=== PATIENT | female | born 1990 | race Caucasian/White ===

== ENCOUNTER 2018-03-25 15:57 | Inpatient (IN) | payer OTHER ==
[~2018-03-25] VITALS: Ht 160 cm; Wt 94.0 kg
[~2018-03-25 15:57] MED LIST: MIREIUD IU; NOVOLOGP2 IMPLANPUMP; PRED20 PO; [UNRECOGNIZED DRUG - CODE] SQ
[2018-03-25] MEDS ORDERED: NURSING INFORMATION OTHER SCH (16:30)
[2018-03-25] MEDS ORDERED: SODIUM CHLORIDE 0.9% FLUSH 10 ML FLUSH IV FLUSH PRN (16:45)
[2018-03-25] MEDS ORDERED: ONDANSETRON ODT 4 MG TAB PO PRN (16:45)
[2018-03-25] MEDS ORDERED: ZOLPIDEM TARTRATE 5 MG TAB PO PRN (16:45)
--- NOTE | 2018-03-25 16:53 | HHI.HP ---
HPI Date Seen: Mar 25, 2018 Time Seen: 16:30 Travel History International Travel<30 Days: No Contact w/Intl Traveler<30Days: No Known Affected Area: No History of Present Illness HPI 27 yo 30 5/7 weeks who had some abdominal pain and had CMP yesterday. she has no symptoms of preeclampsia, no MEJIA no visual disturbance and no hyperreflexia. She had AST/ALT of 400/600. She will be admitted for steroids, 24 hr urine, and repeat labs. She has type 1 DM and hypertension on aldomet Weeks Gestation: 30 Para: 0 : 1 History Past Medical History Narrative Medical Type 1 IDDM, HTN since 13 weeks Obstetric History Obstetric History primiparous Past Surgical History Narrative Surgical none Social History Alcohol Use: No Tobacco Use: No Substance Abuse: No Allergies-Medications (Allergen,Severity, Reaction): Coded Allergies: No Known Allergies (Verified , 09/09/14) Home Meds Active Scripts Prednisone (Deltasone) 20 Mg Tab, 20 MG PO DAILY, #3 TAB Prov:Ximena Gaines MD 09/09/14 Reported Medications Pramlintide Acetate (Symlinpen 60) 1,000 Mcg Inj, 30 UNIT SQ TIDAC 08/09/14 Insulin Aspart (Novolog) 100 Units/Ml Inj, 1 UNIT IMPLANPUMP CONTINUOUS, INJ 08/09/14 Levonorgestrel (Iud) (Mirena) Iud, 1 IU, IUD 08/09/14 Review of Systems Except as stated in HPI: all other systems reviewed are Neg Physical Exam Narrative GENERAL: Well-nourished, well-developed patient. SKIN: Warm and dry. HEAD: Normocephalic and atraumatic. . NECK: Supple, trachea midline. No JVD. CARDIOVASCULAR: Regular rate and rhythm without murmurs, gallops, or rubs. RESPIRATORY: Breath sounds equal bilaterally. No accessory muscle use. BREASTS: Bilateral exam showed no masses , no retractions, no nipple discharge. ABDOMEN/GI: Abdomen soft, non-tender, bowel sounds present, no rebound, no guarding Gravid to 30 weeks size Fundal Height: [-] GENITOURINARY: External Genitalia: intact and normal in appearance BUS glands: [-] Cervix: [-] Dilatation: deferred Effacement: [-] Station: [-] Presentation: [-] Membranes: [intact or ruptured] Uterine Contractions: [-] FHT's: Category: reassuring Baseline: [-] Reactive: [-] Variability: [-] Decels: [-] EXTREMITIES: No cyanosis or edema. BACK: Nontender without obvious deformity. No CVA tenderness. NEUROLOGICAL: Awake and alert. Motor and sensory grossly within normal limits. Five out of 5 muscle strength in all muscle groups. Normal speech. normal reflexes Caprini VTE Risk Assessment Caprini VTE Risk Assessment: No/Low Risk (score <= 1) Caprini Risk Assessment Model Point Value = 1 Point Value = 2 Point Value = 3 Point Value = 5 Age 41-60 Minor surgery BMI > 25 kg/m2 Swollen legs Varicose veins or History of unexplained or recurrent spontaneous Oral contraceptives or hormone replacement Sepsis (< 1 month) Serious lung disease, including pneumonia (< 1 month) Abnormal pulmonary function Acute myocardial infarction Congestive heart failure (< 1 month) History of inflammatory bowel disease Medical patient at bed rest Age 61-74 Arthroscopic surgery Major open surgery (> 45 min) Laparoscopic surgery (> 45 min) Malignancy Confined to bed (> 72 hours) Immobilizing plaster cast Central venous access Age >= 75 History of VTE Family history of VTE Factor V Leiden Prothrombin [id number] Lupus anticoagulant Anticardiolipin antibodies Elevated serum homocysteine Heparin-induced thrombocytopenia Other congenital or acquired thrombophilia Stroke (< 1 month) Elective arthroplasty Hip, pelvis, or leg fracture Acute spinal cord injury (< 1 month) Prophylaxis Regimen Total Risk Factor Score Risk Level Prophylaxis Regimen 0-1 Low Early ambulation 2 Moderate Order ONE of the following: *Sequential Compression Device (SCD) *Heparin 5000 units SQ BID 3-4 Higher Order ONE of the following medications: *Heparin 5000 units SQ TID *Enoxaparin/Lovenox 40 mg SQ daily (WT < 150 kg, CrCl > 30 mL/min) *Enoxaparin/Lovenox 30 mg SQ daily (WT < 150 kg, CrCl > 10-29 mL/min) *Enoxaparin/Lovenox 30 mg SQ BID (WT < 150 kg, CrCl > 30 mL/min) AND/OR *Sequential Compression Device (SCD) 5 or more Highest Order ONE of the following medications: *Heparin 5000 units SQ TID (Preferred with Epidurals) *Enoxaparin/Lovenox 40 mg SQ daily (WT < 150 kg, CrCl > 30 mL/min) *Enoxaparin/Lovenox 30 mg SQ daily (WT < 150 kg, CrCl > 10-29 mL/min) *Enoxaparin/Lovenox 30 mg SQ BID (WT < 150 kg, CrCl > 30 mL/min) AND *Sequential Compression Device (SCD) Data Data Vital Signs Reviewed: Yes Orders Orders Place In Observation (03/25/18 ) Diet Regular Basic (03/25/18 Dinner) Vital Signs (Adult) [id number] AWAKE (03/25/18 16:31) Heart RIGOBERTO.QSHIFT (03/25/18 16:31) Activity Bed Rest With Brp (03/25/18 16:31) Complete Blood Count With Diff (03/25/18 16:31) Total Protein 24hr Urine (03/25/18 16:31) Uric Acid (03/25/18 16:31) Urinalysis - C+S If Indicated (03/25/18 16:31) Acetaminophen (Tylenol) (03/25/18 16:45) Sodium Chloride 0.9% Flush (Ns Flush) (03/25/18 21:00) Sodium Chloride 0.9% Flush (Ns Flush) (03/25/18 16:45) Zolpidem (Ambien) (03/25/18 16:45) Ondansetron Odt (Zofran Odt) (03/25/18 16:45) Consult Perinatology (03/25/18 23:55) Betamethasone Inj (Celestone Soluspan In (03/25/18 16:45) Comprehensive Metabolic Panel (03/25/18 16:31) Hepatitis Profile (03/25/18 16:31) Specimen To Be Collected PRN (03/25/18 16:31) Assessment/Plan Problem List: (1) 30 weeks gestation of ICD Codes: Z3A.30 - 30 weeks gestation of (2) Elevated transaminase level ICD Codes: R74.0 - Nonspecific elevation of levels of transaminase and lactic acid dehydrogenase [LDH] Assessment and Plan betamethasone, 24 hour urine Willie Nicole MD Mar 25, 2018 16:53
[2018-03-25] MEDS ORDERED: METH500T PO (16:56)
[2018-03-25] MEDS: ACETAMINOPHEN 325 MG TAB PO PRN (17:21)
[2018-03-25] MEDS: BETAMETHASONE SOD PHOS/ACETATE SUSP 30 MG/5 ML VIAL IM SCH (17:22)
[2018-03-25 18:29] LABS: AUTOMATED NEUTROPHIL # 7.8 TH/MM3 (1.8-7.7); BASOPHIL % 0.2 % (0.0-2.0); EOSINOPHIL # 0.1 TH/MM3 (0-0.4); EOSINOPHIL % 0.4 % (0.0-4.0); HEMATOCRIT 36.1 % (35.0-46.0); HEMOGLOBIN 12.3 GM/DL (11.6-15.3); LYMPHOCYTE # 2.9 TH/MM3 (1.0-4.8); MEAN CELL VOLUME 91.3 FL (80.0-100.0); MEAN CORPUSCULAR HEMOGLOBIN 31.2 PG (27.0-34.0); MEAN CORPUSCULAR HGB CONC 34.1 % (32.0-36.0); MEAN PLATELET VOLUME 9.9 FL (7.0-11.0); MONO % 6.1 % (0.0-8.0); MONOCYTE # 0.7 TH/MM3 (0-0.9); NEUT % 68.3 % (16.0-70.0); PLATELET COUNT 88 TH/MM3 (150-450); RED BLOOD COUNT 3.95 MIL/MM3 (4.00-5.30); RED CELL DISTRIBUTION WIDTH 13.5 % (11.6-17.2); WHITE BLOOD COUNT 11.4 TH/MM3 (4.0-11.0)
[2018-03-25 18:41] LABS: ALBUMIN 2.7 GM/DL (3.4-5.0); AST (GOT) 150 U/L (15-37); BICARBONATE 22.1 MEQ/L (21.0-32.0); BLOOD UREA NITROGEN 12 MG/DL (7-18); CALCIUM 8.7 MG/DL (8.5-10.1); CHLORIDE 102 MEQ/L (98-107); CREATININE 0.65 MG/DL (0.50-1.00); GLOMERULAR FILTRATION RATE 111 ML/MIN (>89); GLUCOSE,RANDOM 166 MG/DL (74-106); SODIUM (NA) 136 MEQ/L (136-145)
[2018-03-25 18:42] LABS: ALT (GPT) 274 U/L (10-53)
[2018-03-25 18:44] LABS: ALKALINE PHOSPHATASE 200 U/L (45-117); TOTAL BILIRUBIN ADULT 0.3 MG/DL (0.2-1.0); TOTAL PROTEIN 6.8 GM/DL (6.4-8.2)
[2018-03-25 18:47] LABS: BACTERIA, URINE RARE /hpf; BILIRUBIN, URINE NEG (NEG); BLOOD, URINE NEG (NEG); GLUCOSE,URINE NEG (NEG); KETONE, URINE NEG (NEG); NITRITE,URINE NEG (NEG); SQUAMOUS EPITHELIAL CELL URINE 17 /hpf (0-5); URINE COLOR LIGHT-YELLOW (YELLW/STRAW); URINE LEUKOCYTE ESTERASE NEG (NEG)
[2018-03-25 19:31] LABS: BANDS 2 % (0-6); LYMPHOCYTES 12 % (9-44); MONOCYTES 4 % (0-8); MYELOCYTES 1 % (0-0); NEUTROPHIL # MANUAL DIFF 9.6 TH/MM3 (1.8-7.7); POLYS (SEG NEUTROPHILS) 81 % (16-70); TOXIC GRANULATION 2+ (NORMAL)
[2018-03-25 19:59] LABS: HEMOGLOBIN A1C 6.6 % (4.3-6.0)
[2018-03-25] MEDS ORDERED: MORPHINE SULFATE 4 MG/ML INJ IV ONE (20:30)
[2018-03-25] MEDS: SODIUM CHLORIDE 0.9% FLUSH 10 ML FLUSH IV FLUSH SCH (21:41)
[2018-03-25] MEDS: METHYLDOPA 500 MG TAB PO SCH (21:41)
[2018-03-26 06:01] LABS: AUTOMATED NEUTROPHIL # 12.1 TH/MM3 (1.8-7.7); BASOPHIL % 0.1 % (0.0-2.0); HEMATOCRIT 37.7 % (35.0-46.0); HEMOGLOBIN 12.8 GM/DL (11.6-15.3); LYMPH % 11.5 % (9.0-44.0); LYMPHOCYTE # 1.6 TH/MM3 (1.0-4.8); MEAN CELL VOLUME 91.1 FL (80.0-100.0); MEAN PLATELET VOLUME 9.7 FL (7.0-11.0); MONO % 2.6 % (0.0-8.0); MONOCYTE # 0.4 TH/MM3 (0-0.9); NEUT % 85.8 % (16.0-70.0); PLATELET COUNT 116 TH/MM3 (150-450); RED BLOOD COUNT 4.14 MIL/MM3 (4.00-5.30); RED CELL DISTRIBUTION WIDTH 13.4 % (11.6-17.2)
[2018-03-26 06:14] LABS: ALBUMIN 2.4 GM/DL (3.4-5.0); AST (GOT) 85 U/L (15-37); BICARBONATE 20.7 MEQ/L (21.0-32.0); BLOOD UREA NITROGEN 9 MG/DL (7-18); CALCIUM 8.4 MG/DL (8.5-10.1); CHLORIDE 104 MEQ/L (98-107); CREATININE 0.64 MG/DL (0.50-1.00); GLOMERULAR FILTRATION RATE 113 ML/MIN (>89); GLUCOSE,RANDOM 227 MG/DL (74-106); SODIUM (NA) 137 MEQ/L (136-145)
[2018-03-26 06:15] LABS: ALT (GPT) 219 U/L (10-53)
[2018-03-26 06:17] LABS: ALKALINE PHOSPHATASE 207 U/L (45-117); TOTAL BILIRUBIN ADULT 0.3 MG/DL (0.2-1.0); TOTAL PROTEIN 6.6 GM/DL (6.4-8.2)
[2018-03-26] MEDS: SODIUM CHLORIDE 0.9% FLUSH 10 ML FLUSH IV FLUSH SCH ×2 (09:30→20:49)
[2018-03-26] MEDS: METHYLDOPA 500 MG TAB PO SCH ×2 (09:30→20:49)
--- NOTE | 2018-03-26 10:56 | PD.CONS ---
History & Physical H&P The patient is a 27yo at 30 6/7 weeks with an EDC of 05/29/18 as determine by a 7 week ultrasound. She presented from the OB office yesterday due to abdominal pain and elevated LFT's. The patient reports episode of RUQ/ epigastric pain approximately 1 week ago that improved with emesis. The pain recurred 2 days ago; Emesis occurred again, but the pain didn't resolve. She was seen in the office; blood work drawn and LFT's returned as significantly elevated (AST 390, ALT 646). In addition, the initial blood work revealed thrombocytopenia of 88K. Both the LFT's and the platelet count improved upon repeat yesterday and again today. The patient reports that the has been uncomplicated. She does have a 7 year history of Type 1 DM (managed by endocrinology, on insulin pump x 6 years ) and a recent diagnosis this of HTN (diagnosed at 10 weeks, started on Aldomet 500mg BID). No baseline preeclampsia labs were completed. She has a history of headaches. She had a headache last night, and it resolved with rest. It felt to be her usual headache. Lower extremity edema has been 1-2+; the family says her face is swollen. There is good movement; She denies rupture of membranes and vaginal bleeding. PMHx: Type 1 DM: diagnosed 7 years ago. Managed by endocrinology; has been on insulin pump x 6 years. Reports pre- HbA1c of ~ 8.5%; Repeat HbA1c yesterday 6.6%. HTN: diagnosed this at 10 weeks, with BP of 148/98; BP stable on Aldomet 500mg BID; BP range: 120-147/70-91. No baseline HTN labs completed. PSHx: none POBHx: G1 Meds: Humalog, Aldomet, Vitamins NKDA Social Hx: denies tobacco/EtoH/drug use; she works as a critical care nurse. MFM Ultrasound: EFW: 1289g, < 3% cephalic BPP 05/28 DANIELA 12.3 Umbilical doppler mildly elevated: 4.2 MCA: 1.26 NOTE: left forearm not visualized; no left hand seen; left humerus only seen. EFM: 10x10 beat accelerations, appropriate for gestational age, Category 1 Test 03/25/18 17:10 03/26/18 05:14 Blood Urea Nitrogen 12 MG/DL 9 MG/DL Creatinine 0.65 MG/DL 0.64 MG/DL Random Glucose 166 MG/DL 227 MG/DL Total Protein 6.8 GM/DL 6.6 GM/DL Albumin 2.7 GM/DL 2.4 GM/DL Calcium Level 8.7 MG/DL 8.4 MG/DL Uric Acid 4.9 MG/DL Alkaline Phosphatase 200 U/L 207 U/L Aspartate Amino Transf (AST/SGOT) 150 U/L 85 U/L Alanine Aminotransferase (ALT/SGPT) 274 U/L 219 U/L Total Bilirubin 0.3 MG/DL 0.3 MG/DL Sodium Level 136 MEQ/L 137 MEQ/L Potassium Level 3.7 MEQ/L 4.2 MEQ/L Chloride Level 102 MEQ/L 104 MEQ/L Carbon Dioxide Level 22.1 MEQ/L 20.7 MEQ/L Red Blood Count 3.95 MIL/MM3 4.14 MIL/MM3 White Blood Count 11.4 TH/MM3 14.0 TH/MM3 Active Scripts Active Reported 03/25/18 17:10 03/26/18 05:14 IMPRESSION: 1. IUP at 30 6/7 weeks 2. Type 1 DM x 7 years 3. Hypertension, new diagnosis this - No baseline labs or 24hr urine - BP has remained stable on Aldomet 500mg BID; - BP not elevated this admission - 24hr urine in progress 4. Abdominal pain with elevated LFT's, decreased platelets; suspected superimposed preeclampsia, possible HELLP syndrome - Pain has improved since admission; LFT"s have also improved, yet remain elevated. - Thrombocytopenia has also improved, but remain decreased , 150,000. 5. growth restriction - Reassuring testing BPP 07/30 - Appropriate dopplers, umbilical and MCA Differential diagnosis includes superimposed preeclampsia, viral gastroenteritis /infection, gestational thrombocytopenia. We discussed the diagnosis of preeclampsia, criteria for severe disease and management plan at this gestational age. Complications of preeclampsia include development of severe HTN, stroke, blindness, renal insufficiency, convulsions, liver dysfunction, coagulaopathy, growth restriction, placental abruption , demise and complications of prematurity. The family understands that she will be monitored closely with serial lab evaluations since the diagnosis at this time is not clearly established. Should the LFT and/or platelets remain uncorrected or worsen, delivery is indicated for a diagnosis of HELLP. Delivery is indicated for elevated BP. AntiHTN medication should not be increased. There should be a low threshold for delivery, particularly if there is > 300mg proteinuria. In summary, the criteria of severe preeclampsia include: 1. HTN with SBP > 160 or DBP > 105-110 mmHG 2. Pulmonary edema 3. Neurologic signs and symptoms including persistent headache, blurred vision or scotomata 4. Hyperreflexia 5. Convulsions 6. Renal insufficiency 7. Oliguria 8. Hemolysis (LDH>600) 9. Thrombocytopenia < 100,000 10. Elevated LFT 11. Epigastric or RUQ pain. RECOMMENDATIONS: 1. Monitor BP closely 2. Complete 24hr urine to total protein and creatinine clearance 3. Repeat preeclampsia labs today when the 24hr urine is completed. 4. Follow strict input and output 5. Twice daily NST and continuous monitoring if severe range BP 6. Twice weekly testing with BPP and dopplers 7. Twice weekly preeclampsia labs 8. Once weekly 24hr urine collection 9. BMZ series - as you are doing 10. Delivery is indicated in the presence of compromise, development of severe preeclampsia or at 34 weeks due to IUGR in the setting of IDDM and CHTN. Thank you for involving us in the care of your obstetrical patient. Please let us know if you have additional questions. Total Time: 60 min with > 50% time spent in consultation and coordination of care. Eugenia Mercado MD Mar 26, 2018 10:56
--- NOTE | 2018-03-26 13:45 | PD.OB.ANTE ---
Subjective Diagnosis: (1) 30 weeks gestation of Diagnosis: Principal (2) Elevated transaminase level Diagnosis: Principal Objective Lab & Micro Results Test 03/25/18 17:10 03/25/18 18:05 03/26/18 05:14 White Blood Count 11.4 TH/MM3 14.0 TH/MM3 Red Blood Count 3.95 MIL/MM3 4.14 MIL/MM3 Hemoglobin 12.3 GM/DL 12.8 GM/DL Hematocrit 36.1 % 37.7 % Mean Corpuscular Volume 91.3 FL 91.1 FL Mean Corpuscular Hemoglobin 31.2 PG 31.0 PG Mean Corpuscular Hemoglobin Concent 34.1 % 34.0 % Red Cell Distribution Width 13.5 % 13.4 % Platelet Count 88 TH/MM3 116 TH/MM3 Mean Platelet Volume 9.9 FL 9.7 FL Neutrophils (%) (Auto) 68.3 % 85.8 % Lymphocytes (%) (Auto) 25.0 % 11.5 % Monocytes (%) (Auto) 6.1 % 2.6 % Eosinophils (%) (Auto) 0.4 % 0.0 % Basophils (%) (Auto) 0.2 % 0.1 % Neutrophils # (Auto) 7.8 TH/MM3 12.1 TH/MM3 Lymphocytes # (Auto) 2.9 TH/MM3 1.6 TH/MM3 Monocytes # (Auto) 0.7 TH/MM3 0.4 TH/MM3 Eosinophils # (Auto) 0.1 TH/MM3 0.0 TH/MM3 Basophils # (Auto) 0.0 TH/MM3 0.0 TH/MM3 CBC Comment AUTO DIFF DIFF FINAL Differential Total Cells Counted 100 Neutrophils % (Manual) 81 % Band Neutrophils % 2 % Lymphocytes % 12 % Monocytes % 4 % Neutrophils # (Manual) 9.6 TH/MM3 Myelocytes 1 % Differential Comment FINAL DIFF MANUAL Toxic Granulation 2+ Platelet Estimate LOW Platelet Morphology Comment NORMAL Basophilic Stippling FAINT Blood Urea Nitrogen 12 MG/DL 9 MG/DL Creatinine 0.65 MG/DL 0.64 MG/DL Random Glucose 166 MG/DL 227 MG/DL Total Protein 6.8 GM/DL 6.6 GM/DL Albumin 2.7 GM/DL 2.4 GM/DL Calcium Level 8.7 MG/DL 8.4 MG/DL Uric Acid 4.9 MG/DL Alkaline Phosphatase 200 U/L 207 U/L Aspartate Amino Transf (AST/SGOT) 150 U/L 85 U/L Alanine Aminotransferase (ALT/SGPT) 274 U/L 219 U/L Total Bilirubin 0.3 MG/DL 0.3 MG/DL Sodium Level 136 MEQ/L 137 MEQ/L Potassium Level 3.7 MEQ/L 4.2 MEQ/L Chloride Level 102 MEQ/L 104 MEQ/L Carbon Dioxide Level 22.1 MEQ/L 20.7 MEQ/L Anion Gap 12 MEQ/L 12 MEQ/L Estimat Glomerular Filtration Rate 111 ML/MIN 113 ML/MIN Hemoglobin A1c 6.6 % Hepatitis A IgM Antibody NONREACTIVE Hepatitis B Surface Antigen NONREACTIVE Hepatitis B Core IgM Antibody NONREACTIVE Hepatitis C IgG Antibody NONREACTIVE Urine Color LIGHT-YELLOW Urine Turbidity HAZY Urine pH 6.0 Urine Specific [place] 1.005 Urine Protein NEG mg/dL Urine Glucose (UA) NEG mg/dL Urine Ketones NEG mg/dL Urine Occult Blood NEG Urine Nitrite NEG Urine Bilirubin NEG Urine Urobilinogen LESS THAN 2.0 MG/DL Urine Leukocyte Esterase NEG Urine RBC LESS THAN 1 /hpf Urine WBC 1 /hpf Urine Squamous Epithelial Cells 17 /hpf Urine Bacteria RARE /hpf Microscopic Urinalysis Comment CULT NOT INDICATED Urine Opiates Screen NEG Urine Barbiturates Screen NEG Urine Amphetamines Screen NEG Urine Benzodiazepines Screen NEG Urine Cocaine Screen NEG Urine Cannabinoids Screen NEG Physical Exam GENERAL: Well-nourished, well-developed patient. CARDIOVASCULAR: Regular rate and rhythm without murmurs, gallops, or rubs. RESPIRATORY: Breath sounds equal bilaterally. No accessory muscle use. ABDOMEN/GI: Abdomen soft, non-tender. Fundus: [-] GENITOURINARY: External Genitalia: intact and normal in appearance Cervix: [-] Dilatation: [-] Effacement: [-] Station: [-] Presentation: [-] Membranes: [-] Uterine Contractions: [-] FHT's: Category: 1 Baseline: [-] Reactive: [-] Variability: [-] Decels: [-] EXTREMITIES: No cyanosis or edema, non-tender, without signs of DVT. Assessment and Plan Problem List: (1) 30 weeks gestation of ICD Codes: Z3A.30 - 30 weeks gestation of (2) Elevated transaminase level ICD Codes: R74.0 - Nonspecific elevation of levels of transaminase and lactic acid dehydrogenase [LDH] Assessment and Plan betamethasone, 24 hour urine Willie Nicole MD Mar 26, 2018 13:44
[2018-03-26] MEDS: BETAMETHASONE SOD PHOS/ACETATE SUSP 30 MG/5 ML VIAL IM SCH (17:11)
[2018-03-26] MEDS: PANTOPRAZOLE SOD 40 MG DELAYED RELEASE TAB PO SCH (18:15)
[2018-03-26] MEDS: ACETAMINOPHEN 325 MG TAB PO PRN (18:20)
--- NOTE | 2018-03-26 22:41 | PD.OB.ANTE ---
Subjective Diagnosis: (1) 30 weeks gestation of Diagnosis: Principal (2) Elevated transaminase level Diagnosis: Principal Objective Lab & Micro Results Test 03/26/18 05:14 03/26/18 18:05 White Blood Count 14.0 TH/MM3 Red Blood Count 4.14 MIL/MM3 Hemoglobin 12.8 GM/DL Hematocrit 37.7 % Mean Corpuscular Volume 91.1 FL Mean Corpuscular Hemoglobin 31.0 PG Mean Corpuscular Hemoglobin Concent 34.0 % Red Cell Distribution Width 13.4 % Platelet Count 116 TH/MM3 Mean Platelet Volume 9.7 FL Neutrophils (%) (Auto) 85.8 % Lymphocytes (%) (Auto) 11.5 % Monocytes (%) (Auto) 2.6 % Eosinophils (%) (Auto) 0.0 % Basophils (%) (Auto) 0.1 % Neutrophils # (Auto) 12.1 TH/MM3 Lymphocytes # (Auto) 1.6 TH/MM3 Monocytes # (Auto) 0.4 TH/MM3 Eosinophils # (Auto) 0.0 TH/MM3 Basophils # (Auto) 0.0 TH/MM3 CBC Comment DIFF FINAL Differential Comment Blood Urea Nitrogen 9 MG/DL Creatinine 0.64 MG/DL Random Glucose 227 MG/DL Total Protein 6.6 GM/DL Albumin 2.4 GM/DL Calcium Level 8.4 MG/DL Alkaline Phosphatase 207 U/L Aspartate Amino Transf (AST/SGOT) 85 U/L Alanine Aminotransferase (ALT/SGPT) 219 U/L Total Bilirubin 0.3 MG/DL Sodium Level 137 MEQ/L Potassium Level 4.2 MEQ/L Chloride Level 104 MEQ/L Carbon Dioxide Level 20.7 MEQ/L Anion Gap 12 MEQ/L Estimat Glomerular Filtration Rate 113 ML/MIN Urine Total Volume 24 Hours 2950 ML Urine Total Protein 24 Hour 271 MG/24HR Physical Exam GENERAL: Well-nourished, well-developed patient. CARDIOVASCULAR: Regular rate and rhythm without murmurs, gallops, or rubs. RESPIRATORY: Breath sounds equal bilaterally. No accessory muscle use. ABDOMEN/GI: Abdomen soft, non-tender. Fundus: [-] GENITOURINARY: External Genitalia: intact and normal in appearance Cervix: [-] Dilatation: [-] Effacement: [-] Station: [-] Presentation: [-] Membranes:intact Uterine Contractions: [-] FHT's: Category:1 Baseline: [-] Reactive: [-] Variability: [-] Decels: [-] EXTREMITIES: No cyanosis or edema, non-tender, without signs of DVT. Assessment and Plan Problem List: (1) 30 weeks gestation of ICD Codes: Z3A.30 - 30 weeks gestation of (2) Elevated transaminase level ICD Codes: R74.0 - Nonspecific elevation of levels of transaminase and lactic acid dehydrogenase [LDH] Plan: Patient has received both doses of betamethasone and has 24 hour complete 271 mg protein, BP controlled BP on aldomet. She is being closely watched with low plt and elevated AST and ALT for delivery when conditions worsens. She is aware of finding of abnormal arm on anatomy scan that seems to be overlooked with previous US. Assessment and Plan betamethasone, 24 hour urine completed and reviewed with patient. Await labs in AM Willie Nicole MD Mar 26, 2018 22:41
[2018-03-27 05:50] LABS: AUTOMATED NEUTROPHIL # 12.6 TH/MM3 (1.8-7.7); BASOPHIL % 0.2 % (0.0-2.0); HEMATOCRIT 34.9 % (35.0-46.0); LYMPH % 16.3 % (9.0-44.0); LYMPHOCYTE # 2.6 TH/MM3 (1.0-4.8); MEAN CELL VOLUME 90.7 FL (80.0-100.0); MEAN CORPUSCULAR HEMOGLOBIN 31.2 PG (27.0-34.0); MEAN CORPUSCULAR HGB CONC 34.4 % (32.0-36.0); MEAN PLATELET VOLUME 9.2 FL (7.0-11.0); MONO % 4.9 % (0.0-8.0); MONOCYTE # 0.8 TH/MM3 (0-0.9); NEUT % 78.6 % (16.0-70.0); PLATELET COUNT 201 TH/MM3 (150-450); RED BLOOD COUNT 3.85 MIL/MM3 (4.00-5.30); RED CELL DISTRIBUTION WIDTH 13.5 % (11.6-17.2); WHITE BLOOD COUNT 16.1 TH/MM3 (4.0-11.0)
[2018-03-27 06:18] LABS: ALBUMIN 2.3 GM/DL (3.4-5.0); ALKALINE PHOSPHATASE 183 U/L (45-117); ALT (GPT) 165 U/L (10-53); AST (GOT) 51 U/L (15-37); BICARBONATE 21.6 MEQ/L (21.0-32.0); BLOOD UREA NITROGEN 11 MG/DL (7-18); CALCIUM 8.2 MG/DL (8.5-10.1); CHLORIDE 107 MEQ/L (98-107); CREATININE 0.57 MG/DL (0.50-1.00); GLOMERULAR FILTRATION RATE 129 ML/MIN (>89); GLUCOSE,RANDOM 80 MG/DL (74-106); SODIUM (NA) 140 MEQ/L (136-145); TOTAL BILIRUBIN ADULT 0.2 MG/DL (0.2-1.0); TOTAL PROTEIN 6.2 GM/DL (6.4-8.2)
--- NOTE | 2018-03-27 07:57 | PD.OB.ANTE ---
Subjective Diagnosis: (1) 30 weeks gestation of (2) Elevated transaminase level Antepartum ROS: Reports: Other (elevated transaminase, and now normal platlets) Objective Lab & Micro Results Test 03/26/18 18:05 03/27/18 05:06 Urine Total Volume 24 Hours 2950 ML Urine Total Protein 24 Hour 271 MG/24HR White Blood Count 16.1 TH/MM3 Red Blood Count 3.85 MIL/MM3 Hemoglobin 12.0 GM/DL Hematocrit 34.9 % Mean Corpuscular Volume 90.7 FL Mean Corpuscular Hemoglobin 31.2 PG Mean Corpuscular Hemoglobin Concent 34.4 % Red Cell Distribution Width 13.5 % Platelet Count 201 TH/MM3 Mean Platelet Volume 9.2 FL Neutrophils (%) (Auto) 78.6 % Lymphocytes (%) (Auto) 16.3 % Monocytes (%) (Auto) 4.9 % Eosinophils (%) (Auto) 0.0 % Basophils (%) (Auto) 0.2 % Neutrophils # (Auto) 12.6 TH/MM3 Lymphocytes # (Auto) 2.6 TH/MM3 Monocytes # (Auto) 0.8 TH/MM3 Eosinophils # (Auto) 0.0 TH/MM3 Basophils # (Auto) 0.0 TH/MM3 CBC Comment DIFF FINAL Differential Comment Blood Urea Nitrogen 11 MG/DL Creatinine 0.57 MG/DL Random Glucose 80 MG/DL Total Protein 6.2 GM/DL Albumin 2.3 GM/DL Calcium Level 8.2 MG/DL Alkaline Phosphatase 183 U/L Aspartate Amino Transf (AST/SGOT) 51 U/L Alanine Aminotransferase (ALT/SGPT) 165 U/L Total Bilirubin 0.2 MG/DL Sodium Level 140 MEQ/L Potassium Level 4.0 MEQ/L Chloride Level 107 MEQ/L Carbon Dioxide Level 21.6 MEQ/L Anion Gap 11 MEQ/L Estimat Glomerular Filtration Rate 129 ML/MIN Physical Exam GENERAL: Well-nourished, well-developed patient. CARDIOVASCULAR: Regular rate and rhythm without murmurs, gallops, or rubs. RESPIRATORY: Breath sounds equal bilaterally. No accessory muscle use. ABDOMEN/GI: Abdomen soft, non-tender. Fundus: [-] GENITOURINARY: External Genitalia: intact and normal in appearance Cervix: [-] Dilatation: [-] Effacement: [-] Station: [-] Presentation: [-] Membranes: [-] Uterine Contractions: [-] FHT's: Category: 1 Baseline: [-] Reactive: [-] Variability: [-] Decels: [-] EXTREMITIES: No cyanosis or edema, non-tender, without signs of DVT. Assessment and Plan Problem List: (1) 30 weeks gestation of ICD Codes: Z3A.30 - 30 weeks gestation of (2) Elevated transaminase level ICD Codes: R74.0 - Nonspecific elevation of levels of transaminase and lactic acid dehydrogenase [LDH] Plan: Patient has received both doses of betamethasone and has 24 hour complete 271 mg protein, BP controlled BP on aldomet. She is being closely watched with low plt and elevated AST and ALT for delivery when conditions worsens. She is aware of finding of abnormal arm on anatomy scan that seems to be overlooked with previous US. Assessment and Plan lft continue to improve and platlets have normalized Willie Nicole MD Mar 27, 2018 07:57
[2018-03-27] MEDS: METHYLDOPA 500 MG TAB PO SCH ×2 (09:19→21:00)
[2018-03-27] MEDS: SODIUM CHLORIDE 0.9% FLUSH 10 ML FLUSH IV FLUSH SCH ×2 (09:19→21:39)
[2018-03-27] MEDS: PANTOPRAZOLE SOD 40 MG DELAYED RELEASE TAB PO SCH (19:30)
[2018-03-28 08:51] LABS: HEMATOCRIT 36.8 % (35.0-46.0); HEMOGLOBIN 12.4 GM/DL (11.6-15.3); MEAN CELL VOLUME 92.2 FL (80.0-100.0); MEAN CORPUSCULAR HEMOGLOBIN 31.1 PG (27.0-34.0); MEAN CORPUSCULAR HGB CONC 33.7 % (32.0-36.0); PLATELET COUNT 262 TH/MM3 (150-450); RED BLOOD COUNT 3.99 MIL/MM3 (4.00-5.30); RED CELL DISTRIBUTION WIDTH 13.8 % (11.6-17.2)
[2018-03-28] MEDS: METHYLDOPA 500 MG TAB PO SCH ×2 (09:00→21:16)
[2018-03-28] MEDS: SODIUM CHLORIDE 0.9% FLUSH 10 ML FLUSH IV FLUSH SCH ×2 (09:00→21:00)
[2018-03-28 09:04] LABS: ALBUMIN 2.5 GM/DL (3.4-5.0); AST (GOT) 31 U/L (15-37); BICARBONATE 25.5 MEQ/L (21.0-32.0); BLOOD UREA NITROGEN 10 MG/DL (7-18); CALCIUM 8.2 MG/DL (8.5-10.1); CHLORIDE 104 MEQ/L (98-107); CREATININE 0.69 MG/DL (0.50-1.00); GLOMERULAR FILTRATION RATE 104 ML/MIN (>89); GLUCOSE,RANDOM 98 MG/DL (74-106); SODIUM (NA) 140 MEQ/L (136-145)
[2018-03-28 09:05] LABS: ALT (GPT) 136 U/L (10-53)
[2018-03-28 09:07] LABS: ALKALINE PHOSPHATASE 194 U/L (45-117); TOTAL BILIRUBIN ADULT 0.2 MG/DL (0.2-1.0); TOTAL PROTEIN 6.5 GM/DL (6.4-8.2)
--- NOTE | 2018-03-28 16:58 | PD.OB.ANTE ---
Subjective Diagnosis: (1) 30 weeks gestation of (2) Elevated transaminase level Antepartum ROS: Reports: Other (improving LFT and doing well) Objective Lab & Micro Results Test 03/28/18 07:56 White Blood Count 14.0 TH/MM3 Red Blood Count 3.99 MIL/MM3 Hemoglobin 12.4 GM/DL Hematocrit 36.8 % Mean Corpuscular Volume 92.2 FL Mean Corpuscular Hemoglobin 31.1 PG Mean Corpuscular Hemoglobin Concent 33.7 % Red Cell Distribution Width 13.8 % Platelet Count 262 TH/MM3 Mean Platelet Volume 9.0 FL Blood Urea Nitrogen 10 MG/DL Creatinine 0.69 MG/DL Random Glucose 98 MG/DL Total Protein 6.5 GM/DL Albumin 2.5 GM/DL Calcium Level 8.2 MG/DL Alkaline Phosphatase 194 U/L Aspartate Amino Transf (AST/SGOT) 31 U/L Alanine Aminotransferase (ALT/SGPT) 136 U/L Total Bilirubin 0.2 MG/DL Sodium Level 140 MEQ/L Potassium Level 3.5 MEQ/L Chloride Level 104 MEQ/L Carbon Dioxide Level 25.5 MEQ/L Anion Gap 11 MEQ/L Estimat Glomerular Filtration Rate 104 ML/MIN Physical Exam GENERAL: Well-nourished, well-developed patient. CARDIOVASCULAR: Regular rate and rhythm without murmurs, gallops, or rubs. RESPIRATORY: Breath sounds equal bilaterally. No accessory muscle use. ABDOMEN/GI: Abdomen soft, non-tender. Fundus: [-] GENITOURINARY: External Genitalia: intact and normal in appearance Cervix: [-] Dilatation: [-] Effacement: [-] Station: [-] Presentation: [-] Membranes: [-] Uterine Contractions: [-] FHT's: Category: 1 Baseline: [-] Reactive: [-] Variability: [-] Decels: [-] EXTREMITIES: No cyanosis or edema, non-tender, without signs of DVT. Assessment and Plan Problem List: (1) 30 weeks gestation of ICD Codes: Z3A.30 - 30 weeks gestation of (2) Elevated transaminase level ICD Codes: R74.0 - Nonspecific elevation of levels of transaminase and lactic acid dehydrogenase [LDH] Plan: Patient has received both doses of betamethasone and has 24 hour complete 271 mg protein, BP controlled BP on aldomet. She is being closely watched with low plt and elevated AST and ALT for delivery when conditions worsens. She is aware of finding of abnormal arm on anatomy scan that seems to be overlooked with previous US. Assessment and Plan AST normal but ALT high but improving, Platelets Willie Nicole MD Mar 28, 2018 16:58
[2018-03-28] MEDS: PANTOPRAZOLE SOD 40 MG DELAYED RELEASE TAB PO SCH (17:46)
[2018-03-28] MEDS: ACETAMINOPHEN 325 MG TAB PO PRN (18:16)
[2018-03-29] MEDS ORDERED: oxyCODONE/ACETAMINOPHEN 5 MG/325 MG TAB PO PRN ×4 (03:15→18:00)
[2018-03-29] MEDS ORDERED: oxyCODONE/ACETAMINOPHEN 5 MG/325 MG TAB PO ONE (03:15)
[2018-03-29 07:36] LABS: ALBUMIN 2.2 GM/DL (3.4-5.0); ALKALINE PHOSPHATASE 177 U/L (45-117); ALT (GPT) 211 U/L (10-53); AST (GOT) 185 U/L (15-37); BICARBONATE 23.4 MEQ/L (21.0-32.0); BLOOD UREA NITROGEN 8 MG/DL (7-18); CALCIUM 7.6 MG/DL (8.5-10.1); CHLORIDE 106 MEQ/L (98-107); CREATININE 0.58 MG/DL (0.50-1.00); GLOMERULAR FILTRATION RATE 127 ML/MIN (>89); GLUCOSE,RANDOM 124 MG/DL (74-106); SODIUM (NA) 139 MEQ/L (136-145); TOTAL BILIRUBIN ADULT 0.3 MG/DL (0.2-1.0); TOTAL PROTEIN 5.8 GM/DL (6.4-8.2)
[2018-03-29] MEDS: SODIUM CHLORIDE 0.9% FLUSH 10 ML FLUSH IV FLUSH SCH ×2 (07:47→21:00)
[2018-03-29] MEDS: METHYLDOPA 500 MG TAB PO SCH ×2 (08:02→21:00)
--- NOTE | 2018-03-29 08:20 | PD.OB.ANTE ---
Subjective Diagnosis: (1) 30 weeks gestation of (2) Elevated transaminase level Objective Vital Signs Vital Signs Date Time Temp Pulse Resp B/P (MAP) Pulse Ox O2 Delivery O2 Flow Rate FiO2 03/29/18 01:27 18 Lab & Micro Results Test 03/29/18 05:47 Blood Urea Nitrogen 8 MG/DL Creatinine 0.58 MG/DL Random Glucose 124 MG/DL Total Protein 5.8 GM/DL Albumin 2.2 GM/DL Calcium Level 7.6 MG/DL Alkaline Phosphatase 177 U/L Aspartate Amino Transf (AST/SGOT) 185 U/L Alanine Aminotransferase (ALT/SGPT) 211 U/L Total Bilirubin 0.3 MG/DL Sodium Level 139 MEQ/L Potassium Level 3.8 MEQ/L Chloride Level 106 MEQ/L Carbon Dioxide Level 23.4 MEQ/L Anion Gap 10 MEQ/L Estimat Glomerular Filtration Rate 127 ML/MIN Physical Exam GENERAL: Well-nourished, well-developed patient. CARDIOVASCULAR: Regular rate and rhythm without murmurs, gallops, or rubs. RESPIRATORY: Breath sounds equal bilaterally. No accessory muscle use. ABDOMEN/GI: Abdomen soft, non-tender. Fundus: [-] GENITOURINARY: External Genitalia: intact and normal in appearance Cervix: [-] Dilatation: [-] Effacement: [-] Station: [-] Presentation: vtx Membranes: [-] Uterine Contractions: [-] FHT's: Category: 1 Baseline: [-] Reactive: [-] Variability: [-] Decels: [-] EXTREMITIES: No cyanosis or edema, non-tender, without signs of DVT, +2 reflexes brisk. Assessment and Plan Problem List: (1) 30 weeks gestation of ICD Codes: Z3A.30 - 30 weeks gestation of (2) Elevated transaminase level ICD Codes: R74.0 - Nonspecific elevation of levels of transaminase and lactic acid dehydrogenase [LDH] Plan: Patient has received both doses of betamethasone and has 24 hour complete 271 mg protein, BP controlled BP on aldomet. She is being closely watched with low plt and elevated AST and ALT for delivery when conditions worsens. She is aware of finding of abnormal arm on anatomy scan that seems to be overlooked with previous US. Assessment and Plan AST/ALT higher and patient has epigastric pain, possible delivery if worsening Willie Nicole MD Mar 29, 2018 08:20
[2018-03-29 09:38] LABS: HEMATOCRIT 37.4 % (35.0-46.0); HEMOGLOBIN 12.9 GM/DL (11.6-15.3); MEAN CORPUSCULAR HEMOGLOBIN 31.4 PG (27.0-34.0); MEAN CORPUSCULAR HGB CONC 34.5 % (32.0-36.0); MEAN PLATELET VOLUME 8.5 FL (7.0-11.0); PLATELET COUNT 172 TH/MM3 (150-450); RED BLOOD COUNT 4.11 MIL/MM3 (4.00-5.30); RED CELL DISTRIBUTION WIDTH 13.8 % (11.6-17.2); WHITE BLOOD COUNT 17.2 TH/MM3 (4.0-11.0)
[2018-03-29 10:10] LABS: INTERNATIONAL NORMALIZED RATIO 0.9 RATIO; PROTHROMBIN TIME - PATIENT 9.6 SEC (9.8-11.6)
[2018-03-29] MEDS ORDERED: OXYTOCIN 10 UNIT/ML AMP IV ONE (12:00)
[2018-03-29] MEDS ORDERED: ceFAZolin INJ 1,000 MG VIAL IV ONE (12:00)
[2018-03-29] MEDS ORDERED: STERILE WATER FOR INJECTION 20 ML VIAL IV ONE (12:00)
[2018-03-29] MEDS ORDERED: ONDANSETRON HCL 4 MG/2 ML VIAL IV ONE (12:00)
[2018-03-29 15:45] LABS: ALBUMIN 2.4 GM/DL (3.4-5.0); AST (GOT) 404 U/L (15-37); BLOOD UREA NITROGEN 7 MG/DL (7-18); CALCIUM 7.7 MG/DL (8.5-10.1); CHLORIDE 104 MEQ/L (98-107); CREATININE 0.66 MG/DL (0.50-1.00); GLOMERULAR FILTRATION RATE 109 ML/MIN (>89); GLUCOSE,RANDOM 55 MG/DL (74-106); SODIUM (NA) 137 MEQ/L (136-145)
[2018-03-29 16:05] LABS: ALKALINE PHOSPHATASE 190 U/L (45-117); ALT (GPT) 365 U/L (10-53); TOTAL BILIRUBIN ADULT 0.7 MG/DL (0.2-1.0); TOTAL PROTEIN 6.3 GM/DL (6.4-8.2)
[2018-03-29] MEDS ORDERED: MORPHINE SULFATE PF 5 MG/10 ML VIAL ONE (16:34)
[2018-03-29] MEDS ORDERED: CITRIC ACID-SODIUM CITRATE LIQ 30 ML UDC ONE (16:48)
[2018-03-29] MEDS ORDERED: LACTATED RINGER'S 1000 ML IV ONE (17:00)
[2018-03-29] MEDS ORDERED: ceFAZolin 2 GM PREMIX 50 ML IV SCH (17:15)
[2018-03-29] MEDS ORDERED: CITRIC ACID-SODIUM CITRATE LIQ 30 ML UDC PO SCH (17:15)
[2018-03-29] MEDS ORDERED: LACTATED RINGER'S 1000 ML IV SCH (17:30)
--- NOTE | 2018-03-29 17:50 | HHI.PR ---
Subjective Remarks Patient has severe preclampsia and Hellp syndrome. We discussed CS if transaminases worsened and they doubled in 9 hours. Infant was optimized for delivery and NICU was ready. Patient prepared for LTCS Objective Vital Signs Date Time Temp Pulse Resp B/P (MAP) Pulse Ox O2 Delivery O2 Flow Rate FiO2 03/29/18 01:27 18 Result Diagram: 03/29/18 0913 03/29/18 1450 Assessment and Plan Problem List: (1) HELLP syndrome ICD Codes: O14.20 - HELLP syndrome (HELLP), unspecified trimester Willie Nicole MD Mar 29, 2018 17:50
[2018-03-29] MEDS: LACTATED RINGER'S 1000 ML INJ 1,000 ML IV SCH ×2 (17:53→22:51)
--- NOTE | 2018-03-29 17:57 | PD.OB.DELI ---
Procedure Note Section Procedure Pre Op Diagnosis: (1) HELLP syndrome Post Op Diagnosis: (1) HELLP syndrome Performed by Willie Nicole Procedure: Primary Low Transverse Sec Indication for delivery: Maternal medical problems Informed consent obtained: For anesthesia, For procedure Confirmed correct: Patient, Procedure, Time-out taken Anesthesia: Spinal Monitoring during procedure: Blood pressure monitoring Urinary catheter: Inserted using sterile technique, To dependent drainage Sterile preparation: Duraprep Position: Supine with wedge to left side Operative Features Skin Incision: Pfannenstiel Uterine Incision: Low transverse w/knife / blunt ext Presentation: Occiput anterior Delivery date: Mar 29, 2018 Delivery time: 17:18 Delivery of infant: Uneventful Infant: Female, Single One Minute : 8 Five Minute : 8 Weight: 3# Status of infant: Viable Placenta delivered: Intact Medications: Antibiotics, Oxytocin Estimated blood loss: 500 Procedure tolerated: Well Maternal Complications: Other (Hellp) Maternal Condition: Stable 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
[2018-03-29] MEDS ORDERED: SODIUM CHLORIDE 0.9% FLUSH 10 ML FLUSH IV FLUSH PRN ×2 (18:00)
[2018-03-29] MEDS ORDERED: SIMETHICONE 80 MG CHEWABLE TAB PO PRN (18:00)
[2018-03-29] MEDS ORDERED: CALCIUM GLUCONATE 10% 1 GM/10 ML VIAL IV PUSH PRN (18:00)
[2018-03-29] MEDS ORDERED: OXYTOCIN 30 UNITS-500ML PREMIX 500 ML IV ONE (18:00)
[2018-03-29] MEDS ORDERED: MAGNESIUM SULFATE 4 GM PREMIX 100 ML IV ONE (18:00)
[2018-03-29] MEDS: MAGNESIUM SULFATE 40 GM PREMIX 1,000 ML IV SCH (18:18)
[2018-03-29] MEDS ORDERED: EPIDURAL-NO SYSTEMIC NARCOTICS PRN (19:00)
[2018-03-29] MEDS ORDERED: EPIDURAL-DIPHENHYDRAMINE HCL 50 MG CAP PO PRN (19:00)
[2018-03-29] MEDS ORDERED: EPIDURAL-DIPHENHYDRAMINE HCL 50 MG/ML VIAL IV PUSH PRN (19:00)
[2018-03-29] MEDS ORDERED: EPIDURAL-DO NOT ADMINISTER ANTICOAGULANTS PRN (19:00)
[2018-03-29] MEDS ORDERED: EPIDURAL-NALOXONE HCL 0.4 MG/ML AMP IV PUSH PRN (19:00)
--- NOTE | 2018-03-29 19:08 | MP ---
cc: Willie Nicole MD, John DATE OF OPERATION: 03/29/2018 PROCEDURE PERFORMED: Primary low transverse section. PREOPERATIVE DIAGNOSES: Severe preeclampsia with HELLP syndrome, 31 weeks, remote from delivery. POSTOPERATIVE DIAGNOSES: Severe preeclampsia with HELLP syndrome, remote from delivery. SURGEON: Willie Nicole MD ANESTHESIA: Chantal Ocampo was the MEDICAL UNDERWRITER and Dr. Kaminski was the MD anesthesia. COMPLICATIONS: None. ESTIMATED BLOOD LOSS: 500 mL FINDINGS: Live female infant, Apgars of 8 and 8. 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 PROCEDURE IN DETAIL: After informed consent, the patient was taken to the operating room where she was placed under spinal anesthesia. She was placed in supine position with left lateral tilt. Abdomen, perineum, vagina were prepped and draped in normal sterile fashion. A Mccabe catheter was placed to gravity. After adequate anesthesia was assured and timeout was taken, a Pfannenstiel skin incision was carried sharply through the skin to the fascia. The fascia was nicked in the midline. The incision was extended laterally using Lange scissors. Rectus muscles dissected off the fascia with sharp and blunt dissection. Rectus muscle was in the midline. Peritoneum was entered bluntly with a finger. The incision extended laterally using blunt traction. Head was felt to be in the lower uterine segment. A bladder flap was created by dissecting the bladder off the lower uterine segment and then a low transverse uterine incision was then made, carried sharply to the uterine cavity. Clear fluid was noted. The incision was extended laterally using blunt traction. A hand was placed in the uterus. The 's head was brought through the incision. Using fundal pressure, the infant's head readily delivered. Nose and mouth suctioned well. Cord was clamped and cut and the was handed to pediatrics in attendance. Cord blood was collected. Placenta was delivered manually. Uterus exteriorized, wiped free from all remaining products of conception. The uterine incision was then closed with a running locking stitch of chromic suture. The right uterine artery was tied off for hemostasis and a small hematoma developing. At this point, the uterus was placed back into the abdomen and noted to be hemostatic. The peritoneum was closed with Vicryl suture, the fascia was closed with Vicryl suture, and the skin was closed with subcuticular stitch. Each layer was noted to be hemostatic prior to closure. The patient tolerated the procedure well. There was no abnormal bleeding or other abnormalities. The patient has HELLP syndrome. She will have labs in the morning. She will be started on magnesium. Infant went to the NICU. Patient was aware of how the baby was doing. It was 8/8 Apgars on this female . MD KONRAD Gutierrez/ , 06:00 PM , 07:07 PM
[2018-03-29] MEDS ORDERED: SODIUM CHLORIDE 0.9% FLUSH 10 ML FLUSH IV FLUSH SCH (21:00)
[2018-03-29] MEDS ORDERED: OXYTOCIN 30 UNITS-500ML PREMIX 500 ML IV PRN (23:00)
[2018-03-30] VITALS (102 sets, daily range): BP systolic 103–135; BP diastolic 63–96; PULSE 67–93; RESP 1–18; TEMP 97.8–98.3; O2SAT 92–99
[2018-03-30] MEDS: IBUPROFEN 600 MG TAB PO PRN ×3 (05:30→17:45)
[2018-03-30] MEDS: LACTATED RINGER'S 1000 ML INJ 1,000 ML IV SCH ×2 (07:13→08:51)
[2018-03-30 08:21] LABS: AUTOMATED NEUTROPHIL # 16.1 TH/MM3 (1.8-7.7); BASOPHIL % 0.1 % (0.0-2.0); EOSINOPHIL # 0.1 TH/MM3 (0-0.4); EOSINOPHIL % 0.3 % (0.0-4.0); HEMATOCRIT 35.3 % (35.0-46.0); HEMOGLOBIN 12.2 GM/DL (11.6-15.3); LYMPH % 12.1 % (9.0-44.0); LYMPHOCYTE # 2.4 TH/MM3 (1.0-4.8); MEAN CELL VOLUME 90.2 FL (80.0-100.0); MEAN CORPUSCULAR HEMOGLOBIN 31.1 PG (27.0-34.0); MEAN CORPUSCULAR HGB CONC 34.5 % (32.0-36.0); MEAN PLATELET VOLUME 7.7 FL (7.0-11.0); MONO % 5.4 % (0.0-8.0); MONOCYTE # 1.1 TH/MM3 (0-0.9); NEUT % 82.1 % (16.0-70.0); PLATELET COUNT 92 TH/MM3 (150-450); RED BLOOD COUNT 3.91 MIL/MM3 (4.00-5.30); RED CELL DISTRIBUTION WIDTH 14.2 % (11.6-17.2); WHITE BLOOD COUNT 19.7 TH/MM3 (4.0-11.0)
[2018-03-30 08:51] LABS: ALBUMIN 2.1 GM/DL (3.4-5.0); CALCIUM 6.9 MG/DL (8.5-10.1); CALCIUM-PROTEIN CORRECTED 7.6 MG/DL (8.5-10.1); CREATININE 0.55 MG/DL (0.50-1.00); TOTAL BILIRUBIN ADULT 0.6 MG/DL (0.2-1.0); TOTAL PROTEIN 5.8 GM/DL (6.4-8.2)
[2018-03-30] MEDS: SODIUM CHLORIDE 0.9% FLUSH 10 ML FLUSH IV FLUSH SCH (09:00)
[2018-03-30] MEDS: METHYLDOPA 500 MG TAB PO SCH ×2 (09:07→22:13)
--- NOTE | 2018-03-30 11:24 | HHI.OB ---
Subjective Post Day: 1 Remarks doing well no epigastric pain, she will dc magnesium. at 24 hours. Objective Objective Remarks GENERAL: Well-nourished, well-developed patient. ABDOMEN/GI: Abdomen soft, non-tender. Fundus: Firm, non-tender at umbilicus. GENITOURINARY: Light to moderate bleeding. EXTREMITIES: No cyanosis or edema, non-tender, without signs of DVT. Medications and IVs Current Medications Medications (Trade) Dose Ordered Sig/Fco Route Start Time Stop Time Status Last Admin (Aldomet) 500 mg Q12HR PO 03/25/18 21:00 03/30/18 09:07 Lactated Ringer's 1,000 ml @ 100 mls/hr Q10H IV 03/29/18 22:51 03/30/18 18:50 03/29/18 22:51 Oxytocin 500 ml @ 100 mls/hr UNSCH X1 PRN IV 03/29/18 23:00 03/30/18 22:59 (NS Flush) 2 ml BID IV FLUSH 03/29/18 21:00 (NS Flush) 2 ml UNSCH PRN IV FLUSH 03/29/18 18:00 (Mylicon Chew) 80 mg QID PRN PO 03/29/18 18:00 (Motrin) 600 mg Q6H PRN PO 03/29/18 18:00 03/30/18 05:30 (Percocet 5-325 Mg) 1 tab Q4H PRN PO 03/29/18 18:00 (Percocet 5-325 Mg) 2 tab Q4H PRN PO 03/29/18 18:00 03/30/18 05:30 (M-M-R Ii Inj) 0.5 ml ONCE ONCE SQ 03/30/18 16:00 03/30/18 16:01 (Boostrix Inj) 0.5 ml ONCE ONCE IM 03/30/18 16:00 03/30/18 16:01 Lactated Ringer's 1,000 ml @ 75 mls/hr [id number] IV 03/29/18 17:53 Magnesium Sulfate 1,000 ml @ 50 mls/hr Q20H IV 03/29/18 17:53 03/29/18 18:18 (Calcium Gluconate Inj) 1 gm UNSCH PRN IV PUSH 03/29/18 18:00 (Misc Nursing Information) NO SYSTEMIC NARCOTICS TO BE GIVEN FO... UNSCH PRN .XX 03/29/18 19:00 03/30/18 18:59 (Narcan Inj) 0.4 mg UNSCH PRN IV PUSH 03/29/18 19:00 03/30/18 18:59 (Benadryl Inj) 25 mg Q6H PRN IV PUSH 03/29/18 19:00 03/30/18 18:59 (Benadryl) 50 mg Q6H PRN PO 03/29/18 19:00 03/30/18 18:59 ([facility] Nursing Information) ALL NURSING DEPARTMENTS UNSCH PRN .XX 03/29/18 19:00 03/30/18 18:59 Assessment/Plan Problem List: (1) 30 weeks gestation of ICD Codes: Z3A.30 - 30 weeks gestation of (2) Elevated transaminase level ICD Codes: R74.0 - Nonspecific elevation of levels of transaminase and lactic acid dehydrogenase [LDH] Plan: Patient has received both doses of betamethasone and has 24 hour complete 271 mg protein, BP controlled BP on aldomet. She is being closely watched with low plt and elevated AST and ALT for delivery when conditions worsens. She is aware of finding of abnormal arm on anatomy scan that seems to be overlooked with previous US. Assessment and Plan CS for Hellp doing well labs abnormal will recheck in Willie Frederick MD Mar 30, 2018 11:24
[2018-03-30] MEDS: DEXTROSE 5%-LACTATED RING INJ 1,000 ML IV SCH (12:02)
[2018-03-30] MEDS: MAGNESIUM SULFATE 40 GM PREMIX 1,000 ML IV SCH (14:40)
[2018-03-30] MEDS ORDERED: MEASLES, MUMPS, RUBELLA VACCINE 0.5 ML VIAL SQ ONE (16:00)
[2018-03-30] MEDS ORDERED: DIPHTH/TETANUS/ACEL PERTUSSIS (BOOSTER) 0.5 ML VIAL/PFS IM ONE (16:00)
[2018-03-31] VITALS (9 sets, daily range): BP systolic 125–147; BP diastolic 75–87; PULSE 67–94; RESP 14–18; TEMP 97.7–98.5; O2SAT 96–97
[2018-03-31 05:49] LABS: HEMATOCRIT 34.7 % (35.0-46.0); HEMOGLOBIN 11.9 GM/DL (11.6-15.3); MEAN CELL VOLUME 91.9 FL (80.0-100.0); MEAN CORPUSCULAR HEMOGLOBIN 31.5 PG (27.0-34.0); MEAN CORPUSCULAR HGB CONC 34.3 % (32.0-36.0); PLATELET COUNT 119 TH/MM3 (150-450); RED BLOOD COUNT 3.77 MIL/MM3 (4.00-5.30); RED CELL DISTRIBUTION WIDTH 14.4 % (11.6-17.2); WHITE BLOOD COUNT 16.2 TH/MM3 (4.0-11.0)
[2018-03-31] MEDS: IBUPROFEN 600 MG TAB PO PRN ×3 (05:55→21:49)
[2018-03-31 06:13] LABS: BICARBONATE 25.6 MEQ/L (21.0-32.0); CALCIUM 7.2 MG/DL (8.5-10.1); CREATININE 0.56 MG/DL (0.50-1.00)
[2018-03-31 06:17] LABS: CALCIUM-PROTEIN CORRECTED 7.8 MG/DL (8.5-10.1); TOTAL BILIRUBIN ADULT 0.3 MG/DL (0.2-1.0)
--- NOTE | 2018-03-31 07:23 | HHI.OB ---
Subjective Post Day: 1 Remarks doing well, labs improving Objective Objective Remarks GENERAL: Well-nourished, well-developed patient. ABDOMEN/GI: Abdomen soft, non-tender. Fundus: Firm, non-tender at umbilicus. GENITOURINARY: Light to moderate bleeding. EXTREMITIES: No cyanosis or edema, non-tender, without signs of DVT. Medications and IVs Current Medications Medications (Trade) Dose Ordered Sig/Fco Route Start Time Stop Time Status Last Admin (Aldomet) 500 mg Q12HR PO 03/25/18 21:00 03/30/18 22:13 (NS Flush) 2 ml BID IV FLUSH 03/29/18 21:00 (NS Flush) 2 ml UNSCH PRN IV FLUSH 03/29/18 18:00 03/30/18 17:45 (Mylicon Chew) 80 mg QID PRN PO 03/29/18 18:00 (Motrin) 600 mg Q6H PRN PO 03/29/18 18:00 03/31/18 05:55 (Percocet 5-325 Mg) 1 tab Q4H PRN PO 03/29/18 18:00 03/31/18 05:55 (Percocet 5-325 Mg) 2 tab Q4H PRN PO 03/29/18 18:00 03/30/18 05:30 Lactated Ringer's 1,000 ml @ 75 mls/hr [id number] IV 03/29/18 17:53 Magnesium Sulfate 1,000 ml @ 50 mls/hr Q20H IV 03/29/18 17:53 03/30/18 14:40 (Calcium Gluconate Inj) 1 gm UNSCH PRN IV PUSH 03/29/18 18:00 Dextrose/Lactated Ringer's 1,000 ml @ 75 mls/hr [id number] IV 03/30/18 11:30 03/30/18 12:02 Assessment/Plan Problem List: (1) 30 weeks gestation of ICD Codes: Z3A.30 - 30 weeks gestation of (2) Elevated transaminase level ICD Codes: R74.0 - Nonspecific elevation of levels of transaminase and lactic acid dehydrogenase [LDH] Plan: Patient has received both doses of betamethasone and has 24 hour complete 271 mg protein, BP controlled BP on aldomet. She is being closely watched with low plt and elevated AST and ALT for delivery when conditions worsens. She is aware of finding of abnormal arm on anatomy scan that seems to be overlooked with previous US. Assessment and Plan cs for HELLP doing well, labs improving Willie Nicole MD Mar 31, 2018 07:22
[2018-03-31] MEDS: METHYLDOPA 500 MG TAB PO SCH ×2 (09:17→21:48)
[2018-03-31] MEDS: SODIUM CHLORIDE 0.9% FLUSH 10 ML FLUSH IV FLUSH SCH (09:18)
[2018-03-31] MEDS: DEXTROSE 5%-LACTATED RING INJ 1,000 ML IV SCH (11:58)
[2018-03-31] MEDS: LACTATED RINGER'S 1000 ML INJ 1,000 ML IV SCH ×2 (11:58→23:13)
[2018-03-31] MEDS: MAGNESIUM SULFATE 40 GM PREMIX 1,000 ML IV SCH (11:58)
[2018-04-01] MEDS: MAGNESIUM SULFATE 40 GM PREMIX 1,000 ML IV SCH (02:39)
[2018-04-01] MEDS: DEXTROSE 5%-LACTATED RING INJ 1,000 ML IV SCH (02:39)
[2018-04-01 02:47] VITALS: BP 127/77; PULSE 94; RESP 18; TEMP 98; O2SAT 98
[2018-04-01 04:00] VITALS: BP 136/88; PULSE 74; RESP 18; TEMP 98.5; O2SAT 97
[2018-04-01] MEDS: IBUPROFEN 600 MG TAB PO PRN (04:31)
[2018-04-01 08:00] VITALS: BP 123/86; PULSE 95; RESP 20; TEMP 97.8; O2SAT 99
[2018-04-01] MEDS: METHYLDOPA 500 MG TAB PO SCH (08:14)
--- NOTE | 2018-04-01 10:44 | HHI.OB ---
Subjective Post Day: 3 Remarks doing well PP day #3 CS for Hellp. No repeat labs patient and I discussed to be repeated in 7-14 days Objective Vitals/I&O Vital Signs Date Time Temp Pulse Resp B/P (MAP) Pulse Ox O2 Delivery O2 Flow Rate FiO2 03/31/18 15:30 98.1 83 16 147/87 (107) 03/31/18 12:45 97.7 87 16 133/83 (100) Objective Remarks GENERAL: Well-nourished, well-developed patient. ABDOMEN/GI: Abdomen soft, non-tender. Fundus: Firm, non-tender at umbilicus. GENITOURINARY: Light to moderate bleeding. EXTREMITIES: No cyanosis or edema, non-tender, without signs of DVT. Medications and IVs Current Medications Medications (Trade) Dose Ordered Sig/Fco Route Start Time Stop Time Status Last Admin (Aldomet) 500 mg Q12HR PO 03/25/18 21:00 04/01/18 08:14 (NS Flush) 2 ml BID IV FLUSH 03/29/18 21:00 03/31/18 09:18 (NS Flush) 2 ml UNSCH PRN IV FLUSH 03/29/18 18:00 03/30/18 17:45 (Mylicon Chew) 80 mg QID PRN PO 03/29/18 18:00 (Motrin) 600 mg Q6H PRN PO 03/29/18 18:00 04/01/18 04:31 (Percocet 5-325 Mg) 1 tab Q4H PRN PO 03/29/18 18:00 03/31/18 05:55 (Percocet 5-325 Mg) 2 tab Q4H PRN PO 03/29/18 18:00 03/30/18 05:30 Lactated Ringer's 1,000 ml @ 75 mls/hr [id number] IV 03/29/18 17:53 Magnesium Sulfate 1,000 ml @ 50 mls/hr Q20H IV 03/29/18 17:53 03/30/18 14:40 (Calcium Gluconate Inj) 1 gm UNSCH PRN IV PUSH 03/29/18 18:00 Dextrose/Lactated Ringer's 1,000 ml @ 75 mls/hr [id number] IV 6/10/18 11:30 03/30/18 12:02 Assessment/Plan Problem List: (1) 30 weeks gestation of ICD Codes: Z3A.30 - 30 weeks gestation of (2) Elevated transaminase level ICD Codes: R74.0 - Nonspecific elevation of levels of transaminase and lactic acid dehydrogenase [LDH] Plan: Patient has received both doses of betamethasone and has 24 hour complete 271 mg protein, BP controlled BP on aldomet. She is being closely watched with low plt and elevated AST and ALT for delivery when conditions worsens. She is aware of finding of abnormal arm on anatomy scan that seems to be overlooked with previous US. Assessment and Plan cs for HELLP Dc home today Willie Nicole MD Apr 01, 2018 10:44
[2018-04-01] MEDS ORDERED: OXYC1TAB63 PO (10:46)
--- NOTE | 2018-04-01 10:46 | HHI.DCPOC ---
Discharge Care Plan Diagnosis: (1) delivery delivered (2) HELLP syndrome Report Symptoms to Your Doctor -Temperature above 100.5 degrees -Redness, of incision or excessive or foul smelling drainage -Unusual pain or calf pain -Increased vaginal bleeding -Painful or difficulty urinating -Feelings of extreme sadness or anxiety after 2 weeks Goals to Promote Your Health * To prevent worsening of your condition and complications * To maintain your health at the optimal level Directions to Meet Your Goals Take your medications as prescribed Follow your dietary instruction Follow activity as directed Ensure plenty of rest for recovery Drink fluids for hydration Keep your appointments as scheduled Take your immunizations and boosters as scheduled If your symptoms worsen call your PCP, if no PCP go to Urgent Care Center or Emergency Room Smoking is Dangerous to Your Health. Avoid second hand smoke Call the 24-hour crisis hotline for domestic abuse at Willie Nicole MD Apr 01, 2018 10:46
--- NOTE | 2018-04-01 10:48 | HHI.DS ---
Admission Date Mar 25, 2018 at 15:57 Discharge Date: Apr 01, 2018 Admitting Diagnosis Diagnosis: Delivery Date: Mar 29, 2018 : Primary Reason: HEllp Infant: Female, Single Brief History 27 yo 30 5/7 weeks who had some abdominal pain and had CMP yesterday. she has no symptoms of preeclampsia, no MEJIA no visual disturbance and no hyperreflexia. She had AST/ALT of 400/600. She will be admitted for steroids, 24 hr urine, and repeat labs. She has type 1 DM and hypertension on aldomet Hospital Course admitted for 5 days and Hellp worsened and she had CSand improved PP Pt Condition on Discharge: Good Discharge Disposition: Discharge Home Discharge Instructions Diet Instructions: As Tolerated, No Restrictions Activities You Can Perform: Pelvic Rest Activities to Avoid: Driving for 24 hrs Follow up Referrals: ANESTHESIOLOGY FELLOW - 2 Weeks @ [facility] with Willie Nicole MD New Medications: Oxycodone HCl/Acetaminophen (Oxycodone-Acetaminophen 5-325) 5 Mg-325 Mg Tablet 1 TAB PO Q4H PRN for PAIN SCALE 3 TO 5, #20 TAB Continued Medications: Insulin Aspart (Novolog) 100 Units/Ml Inj 1 UNIT IMPLANPUMP CONTINUOUS, INJ Methyldopa (Methyldopa) 500 Mg Tab 500 MG PO BID for Blood Pressure Management, TAB 0 Refills Pramlintide Acetate (Symlinpen 60) 1,000 Mcg Inj 30 UNIT SQ TIDAC Willie Nicole MD Apr 01, 2018 10:48
--- NOTE | 2018-04-01 11:06 | MD ---
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 The patient came in with vague abdominal pain to the office on Saturday. The patient was diagnosed with HELLP syndrome on Saturday. On Saturday her labs came back with transaminases of the 400-600 range. The patient was admitted to the hospital on Saturday from working. She was given steroids and kept on bedrest. Labs and platelet count improved almost to normal and then became worse again on Saturday. A decision was made for section on Saturday03/29/2018. The patient had a section on 03/29/2018 and was discharged home on 04/01/2018 on day 3. Postop day 3, she was doing well. Her labs were improving, but not back to normal yet. She had no headaches, no visual changes. No hypertension. The patient will remain on her methyldopa when she is discharged home. She will followup with Dr. Nicole in 1 week. She will continue the continue the medication. She is in stable condition. Regular diet, pelvic rest, resume activity. She will call for any fever. A prescription for Percocet was given. Willie Nicole MD JWM/DL , 10:52 AM , 11:05 AM
[2018-04-01 12:00] VITALS: BP 115/76; PULSE 84; RESP 18; TEMP 97.9; O2SAT 98
== END 2018-04-01 18:08 | disposition home or self-care (01) | DRG 766 ==
LOC: H2EA 15:57 → H1EA 03-30 18:50
PROVIDERS: ADMIT Obstetrics & Gynecology; ATTEND Obstetrics & Gynecology
PROC: 10D00Z1 Extraction of Products of Conception, Low, Open Approach (ICD-10-PCS; principal; 2018-03-29)
DX: O14.24 HELLP syndrome, complicating childbirth (principal); O24.02 Pre-existing type 1 diabetes mellitus, in childbirth; E10.9 Type 1 diabetes mellitus without complications; Z79.4 Long term (current) use of insulin; Z96.41 Presence of insulin pump (external) (internal); Z3A.30 30 weeks gestation of pregnancy; Z37.0 Single live birth
CPT/HCPCS: 76811; 76819; 76820; 76821; 76825; 76827; 80053; 80074; 80307; 81001; 82948; 83036; 84157; 84550; 85007; 85025; 85027; 85610; 85730; 86850; 86900; 86901; 88307; 93325; G0481; J0690; J0702; J2274; J2405; J2590; J3475; J7120; J7121